=== PATIENT | male | born 1965 | race Caucasian/White ===

== ENCOUNTER → 2024-05-20 | Outpatient (CLI) | payer OTHER ==
[~2024-05-20] MED LIST: HYDACE5 PO
== END | disposition home or self-care (01) ==
LOC: LAB 15:12 → LAB SHORT 15:12
DX: C44.319 Basal cell carcinoma of skin of other parts of face (principal); L98.9 Disorder of the skin and subcutaneous tissue, unspecified
CPT/HCPCS: 88305